=== PATIENT | female | born 1990 | race Two or more races ===

== ENCOUNTER 2020-06-21 14:05 | Emergency (ER) | payer MEDICAID, OTHER ==
[~2020-06-21] VITALS: Ht 157.5 cm; Wt 57.2 kg
[2020-06-21 14:35] VITALS: BP 98/62
[2020-06-21 14:53] LABS: Urine Bacteria MOD /hpf (None Seen); Urine Blood Negative /uL (Negative); Urine Specific Gravity 1.004 (1.001-1.035); Urine WBC 29 /hpf (0 - 5)
[2020-06-21] MEDS: ACETAMINOPHEN 500 MG TAB PO ONE (15:18)
[2020-06-21] MEDS: cefTRIAXone SOD 1,000 MG VL IM ONE (15:18)
== END 2020-06-21 15:47 | disposition home or self-care (01) ==
LOC: ER 14:05
DX: S39.012A Strain of muscle, fascia and tendon of lower back, initial encounter (principal); N30.00 Acute cystitis without hematuria; X58.XXXA Exposure to other specified factors, initial encounter; Y93.89 Activity, other specified; Y92.89 Other specified places as the place of occurrence of the external cause; Y99.8 Other external cause status
CPT/HCPCS: 81001; 96372; 99283; J0696